=== PATIENT | male | born 1995 | race African-American/Black ===

== ENCOUNTER 2023-12-08 11:11 | Emergency (ER) | payer MEDICAID, OTHER ==
[~2023-12-08] VITALS: Ht 165.1 cm; Wt 100.0 kg
[2023-12-08 11:22] VITALS: O2SAT 99
[2023-12-08] MEDS ORDERED: depakote (11:22)
[2023-12-08] MEDS ORDERED: advair (11:22)
[2023-12-08] MEDS ORDERED: hydroxyzine (11:22)
[2023-12-08] MEDS ORDERED: haldol (11:22)
[2023-12-08] MEDS ORDERED: senna (11:22)
[2023-12-08] MEDS ORDERED: chlorpromazine (11:22)
[2023-12-08] MEDS ORDERED: ESCI20TA37 PO (11:43)
[2023-12-08] MEDS ORDERED: LORA10TA7 PO (11:43)
[2023-12-08] MEDS ORDERED: CLON-493 PO (11:43)
[2023-12-08] MEDS ORDERED: DIGOXIN (11:43)
[2023-12-08] MEDS ORDERED: METO-396 PO (11:43)
[2023-12-08 12:00] LABS: BASOPHILS % 0.4 % (0.0-2.0); EOSINOPHILS % 2.5 % (0.0-5.0); HEMATOCRIT. 40.3 % (42.0-52.0); HEMOGLOBIN. 13.5 g/dL (14.0-18.0); MEAN CORPUSCULAR HGB CONC 33.5 g/dL (31.0-37.0); MEAN CORPUSCULAR VOLUME 92.7 fL (80.0-94.0); MEAN PLATELET VOLUME 7.5 fl (7.4-10.4); MONOCYTES % 12.3 % (2.0-8.0); NEUTROPHILS % 53.8 % (40.0-76.0); PLATELET 172 x1000/uL (130-400); RED BLOOD CELL COUNT 4.35 mill/uL (4.7-6.1); RED CELL DISTRIBUTION WIDTH 13.1 % (11.6-14.6); WHITE BLOOD COUNT 4.3 x1000/uL (4.5-11.0)
[2023-12-08 12:08] LABS: CARBON DIOXIDE 29 mEq/L (21-32); CHLORIDE 108 mEq/L (98-107); SODIUM 139 mEq/L (136-145)
[2023-12-08 12:09] LABS: CALCIUM 9.3 mg/dL (8.7-10.4)
[2023-12-08 12:13] LABS: GLUCOSE 120 mg/dL (70-105)
[2023-12-08 12:14] LABS: UREA NITROGEN BLOOD 11 mg/dL (9-23)
[2023-12-08 12:15] LABS: ACETAMINOPHEN < 2 ug/mL (10-30); VALPROIC ACID 62.6 ug/mL (50-100)
[2023-12-08 12:17] LABS: ETHANOL BLOOD < 10 mg/dL (<10); TROPONIN I HIGH SENSITIVITY < 4 ng/L (3.0-53)
[2023-12-08 14:08] LABS: CLARITY URINE CLEAR (CLEAR); COLOR URINE YELLOW (YELLOW); GLUCOSE URINE NEGATIVE (NEGATIVE); KETONES URINE NEGATIVE (NEGATIVE); LEUKOCYTE ESTERASE URINE NEGATIVE (NEGATIVE); NITRITE URINE NEGATIVE (NEGATIVE); OCCULT BLOOD URINE NEGATIVE (NEGATIVE); PH URINE 7.5 (4.5-8.0); PROTEIN URINE NEGATIVE (NEGATIVE); SPECIFIC GRAVITY URINE 1.013 (1.005-1.030)
[2023-12-08 14:29] LABS: *AMPHETAMINES SCREEN URINE NEGATIVE (NEGATIVE); *BARBITURATES SCREEN URINE NEGATIVE (NEGATIVE); *BENZODIAZEPINES SCREEN URINE NEGATIVE (NEGATIVE); *COCAINE SCREEN URINE NEGATIVE (NEGATIVE)
[2023-12-08 14:30] LABS: CANNABINOID URINE SCREEN NEGATIVE (NEGATIVE); ECSTASY MDMA SCREEN URINE NEGATIVE (NEGATIVE); METHADONE URINE SCREEN NEGATIVE (NEGATIVE); OPIATES URINE SCREEN NEGATIVE (NEGATIVE); PHENCYCLIDINE URINE SCREEN NEGATIVE (NEGATIVE)
[2023-12-08 19:21] LABS: CHLORIDE 105 mEq/L (98-107); POTASSIUM 3.9 mEq/L (3.5-5.1); SODIUM 139 mEq/L (136-145)
[2023-12-08 19:22] LABS: CARBON DIOXIDE 31 mEq/L (21-32)
[2023-12-08 19:23] LABS: CALCIUM 9.1 mg/dL (8.7-10.4)
[2023-12-08 19:27] LABS: GLUCOSE 90 mg/dL (70-105)
[2023-12-08 19:28] LABS: UREA NITROGEN BLOOD 11 mg/dL (9-23)
[2023-12-08 19:29] LABS: ALANINE AMINOTRANSFERASE 18 IU/L (10-49); ALBUMIN 3.8 g/dL (3.2-4.8); ASPARTATE AMINOTRANSFERASE 40 IU/L (<34)
[2023-12-08 19:30] LABS: BILIRUBIN TOTAL 0.4 mg/dL (0.1-1.0); DIGOXIN 0.6 ng/mL (0.8-2.0); PROTEIN TOTAL 6.9 g/dL (6.0-8.3)
[2023-12-10] MEDS: HALOPERIDOL LACTATE 5MG/ML VIAL IM ONE (22:39)
[2023-12-10] MEDS: DIPHENHYDRAMINE 50MG/ML VIAL IM ONE (22:40)
[2023-12-10] MEDS: LORAZEPAM 2MG/ML INJ IM ONE (22:40)
[2023-12-11 17:43] VITALS: BP 110/72; TEMP 98.1
[2023-12-12 06:45] VITALS: PULSE 84; RESP 18
== END 2023-12-12 14:04 | disposition home or self-care (01) ==
LOC: ER 11:11
DX: R07.89 Other chest pain (principal); J45.909 Unspecified asthma, uncomplicated; Z20.822 Contact with and (suspected) exposure to COVID-19; Z88.6 Allergy status to analgesic agent; Z86.59 Personal history of other mental and behavioral disorders
CPT/HCPCS: 80053; 80305; 80048; 81003; 80307; 80329; 80320; 80162; 82962; 83605; 80165; 85025; 84484; 36415; 93005; 99285; 87426; 96372; Z7610 ×3; J1200; J1630; J2060; G0480